=== PATIENT | female | born 1995 | race Hispanic/Latino ===

== ENCOUNTER 2017-09-16 13:38 | Emergency (ER) | payer SELFPAY ==
[~2017-09-16] VITALS: Ht 162.6 cm; Wt 80.4 kg
[~2017-09-16 13:38] MED LIST: NOHOMEMEDS
[2017-09-16 14:28] LABS: HEMATOCRIT 38.1 % (36.0-46.0); MCH 30.4 PG (29.0-34.0); MCHC 34.1 G/DL (30.0-36.0); MCV 89.2 FL (83-99); RBC DIS.WIDTH-CV 12.5 % (11.8-14.6); RBC DIS.WIDTH-SD 40.8 % (39-53); RED BLOOD COUNT 4.27 M/uL (3.80-5.20); WHITE BLOOD COUNT 9.3 K/uL (4.1-10.2)
[2017-09-16 15:28] LABS: HEMATOLOGY COMMENT 1 SN; PLAT.SUFFICIENCY ADEQUATE; PLATELET COUNT 236 K/uL (156-360)
[2017-09-16 15:43] LABS: APPEARANCE CLEAR ((CLEAR)); BILIRUBIN NEGATIVE; BLOOD NEGATIVE; COLOR STRAW ((YELLOW)); GLUCOSE (STRIP) NEGATIVE; KETONES NEGATIVE; LEUKOCYTES NEGATIVE; NITRITE NEGATIVE; PROTEIN (STRIP) NEGATIVE; SPECIFIC GRAVITY 1.005 (1.000-1.030); UCUL ADDED? NO; UROBILINOGEN 0.2 MG/DL (0.2-1.0)
[2017-09-16 17:10] VITALS: BP 120/76
== END 2017-09-16 17:11 | disposition home or self-care (01) ==
LOC: EME 13:38
DX: O20.9 Hemorrhage in early pregnancy, unspecified (principal); O21.9 Vomiting of pregnancy, unspecified; R10.9 Unspecified abdominal pain; Z87.59 Personal history of other complications of pregnancy, childbirth and the puerperium; Z3A.01 Less than 8 weeks gestation of pregnancy; Z87.891 Personal history of nicotine dependence
CPT/HCPCS: 76801; 81003; 84702; 85027; 99281; 99284

== ENCOUNTER 2018-04-28 17:10 | Outpatient (CLI) | payer OTHER ==
[~2018-04-28] VITALS: Ht 160 cm; Wt 102.0 kg
[2018-04-28 17:40] VITALS: BP 141/84
[2018-04-28 18:10] VITALS: BP 123/72
[2018-04-28 18:24] LABS: BASOPHIL (%) 0.3 % (0-1); EOSINOPHIL (%) 0.7 % (0-5); EOSINOPHIL COUNT 0.1 K/uL (0-0.3); HEMATOCRIT 34.2 % (36.0-46.0); HEMOGLOBIN 11.5 G/DL (11.9-15.5); IMMATURE GRANULOCYTE (%) 0.5 % (0.0-0.7); LYMPHOCYTE (%) 19.4 % (15-42); LYMPHOCYTE COUNT 1.8 K/uL (1.0-2.8); MCH 29.5 PG (29.0-34.0); MCHC 33.6 G/DL (30.0-36.0); MCV 87.7 FL (83-99); MONOCYTE (%) 5.7 % (3-12); MONOCYTE COUNT 0.5 K/uL (0-0.8); NEUTROPHIL (%) 73.4 % (45-76); NEUTROPHIL COUNT 6.9 K/uL (1.8-6.4); PLATELET COUNT 138 K/uL (156-360); RBC DIS.WIDTH-CV 13.8 % (11.8-14.6); RBC DIS.WIDTH-SD 43.8 % (39-53); WHITE BLOOD COUNT 9.3 K/uL (4.1-10.2)
[2018-04-28 18:34] LABS: ALBUMIN 3.4 g/dL (3.2-4.8); CHLORIDE 109 mEq/L (99-109); SODIUM 140 mEq/L (136-147)
[2018-04-28 18:36] LABS: GLUCOSE 91 mg/dL (70-99)
[2018-04-28 18:37] LABS: TOTAL PROTEIN 6.1 g/dL (6.4-8.3)
[2018-04-28 18:38] LABS: TOTAL BILIRUBIN 0.2 mg/dL (0.0-1.0)
[2018-04-28 18:40] LABS: ALKALINE PHOSPHATASE 195 IU/L (3-129); CREATININE 0.7 mg/dL (0.6-1.3); GFR ESTIMATE (CALCULATED) > 59 mL/min/
[2018-04-28 18:41] VITALS: BP 128/71
[2018-04-28 18:41] LABS: UREA NITROGEN (BUN) 16 mg/dL (9-23)
[2018-04-28 18:42] LABS: AST (GOT) 13 IU/L (2-34)
[2018-04-28 18:43] LABS: ALT (GPT) 9 IU/L (3-49)
[2018-04-28 19:05] VITALS: BP 119/76
[2018-04-28 19:51] LABS: UR CREATININE CONCENTRATION 181.4 MG/DL
[2018-04-28 20:57] LABS: URIC ACID 2.2 mg/dL (3.1-9.2)
[2018-04-29 11:16] LABS: HEMOGLOBIN A1c (GLYCOHEMOGLOB) 5.5 % (Below 5.7)
[2018-04-29 11:46] LABS: TREPONEMA ANTIBODY NEGATIVE (NEGATIVE)
== END 2018-04-28 22:28 | disposition home or self-care (01) ==
LOC: LDRP-OP → 2WEST 17:11 → LDRP-OP 06-09 08:45
PROVIDERS: Advanced Practice Midwife; Obstetrics & Gynecology
DX: O36.8130 Decreased fetal movements, third trimester, not applicable or unspecified (principal); Z3A.38 38 weeks gestation of pregnancy
CPT/HCPCS: 59025; 80053; 82570; 82948; 83036; 84156; 84550; 85025; 86780; 87086; G0378

== ENCOUNTER 2018-05-07 14:16 | Outpatient (CLI) | payer OTHER ==
[~2018-05-07] VITALS: Ht 162.6 cm; Wt 110.2 kg
[2018-05-07] VITALS (8 sets, daily range): BP systolic 116–130; BP diastolic 63–80
[2018-05-07 15:38] LABS: BASOPHIL (%) 0.3 % (0-1); EOSINOPHIL (%) 0.6 % (0-5); EOSINOPHIL COUNT 0.1 K/uL (0-0.3); HEMATOCRIT 33.2 % (36.0-46.0); HEMOGLOBIN 11.2 G/DL (11.9-15.5); IMMATURE GRANULOCYTE (%) 0.3 % (0.0-0.7); LYMPHOCYTE (%) 21.1 % (15-42); LYMPHOCYTE COUNT 1.8 K/uL (1.0-2.8); MCH 29.6 PG (29.0-34.0); MCHC 33.7 G/DL (30.0-36.0); MCV 87.8 FL (83-99); MONOCYTE (%) 5.3 % (3-12); MONOCYTE COUNT 0.5 K/uL (0-0.8); NEUTROPHIL (%) 72.4 % (45-76); NEUTROPHIL COUNT 6.3 K/uL (1.8-6.4); PLATELET COUNT 138 K/uL (156-360); RBC DIS.WIDTH-CV 14.3 % (11.8-14.6); RBC DIS.WIDTH-SD 45.8 % (39-53); RED BLOOD COUNT 3.78 M/uL (3.80-5.20); WHITE BLOOD COUNT 8.7 K/uL (4.1-10.2)
[2018-05-07 15:51] LABS: APPEARANCE CLOUDY ((CLEAR)); BILIRUBIN NEGATIVE; BLOOD NEGATIVE; COLOR YELLOW ((YELLOW)); GLUCOSE (STRIP) NEGATIVE; KETONES NEGATIVE; LEUKOCYTES NEGATIVE; NITRITE NEGATIVE; PROTEIN (STRIP) 30; SPECIFIC GRAVITY 1.025 (1.000-1.030); UROBILINOGEN 0.2 MG/DL (0.2-1.0)
[2018-05-07 15:54] LABS: ALBUMIN 3.1 g/dL (3.2-4.8); CHLORIDE 110 mEq/L (99-109); POTASSIUM 4.2 mEq/L (3.7-5.4); SODIUM 139 mEq/L (136-147)
[2018-05-07 15:56] LABS: GLUCOSE 95 mg/dL (70-99)
[2018-05-07 15:58] LABS: TOTAL BILIRUBIN 0.3 mg/dL (0.0-1.0)
[2018-05-07 16:00] LABS: ALKALINE PHOSPHATASE 179 IU/L (3-129); CREATININE 0.7 mg/dL (0.6-1.3); GFR ESTIMATE (CALCULATED) > 59 mL/min/
[2018-05-07 16:01] LABS: UREA NITROGEN (BUN) 10 mg/dL (9-23)
[2018-05-07 16:02] LABS: AST (GOT) 12 IU/L (2-34)
[2018-05-07 16:03] LABS: ALT (GPT) 11 IU/L (3-49); URIC ACID 2.6 mg/dL (3.1-9.2)
[2018-05-07 16:10] LABS: UR CREATININE CONCENTRATION 197.5 MG/DL
[2018-05-07 16:17] LABS: AMPHETAMINE NEGATIVE (500 ng/mL); BARBITURATES NEGATIVE (200 ng/mL); BENZODIAZEPINES NEGATIVE (150 ng/mL); BUPRENORPHINE NEGATIVE (10 ng/mL); COCAINE NEGATIVE (150 ng/mL); METHADONE NEGATIVE (200 ng/mL); METHAMPHETAMINE NEGATIVE (500 ng/mL); OPIATES (MORPHINE) NEGATIVE (100 ng/mL); OXYCODONE NEGATIVE (100 ng/mL); PHENCYCLIDINE NEGATIVE (25 ng/mL); PROPOXYPHENE NEGATIVE (300 ng/mL); THC CANNABINOIDS NEGATIVE (50 ng/mL); TRICYCLIC ANTIDEPRESSANTS NEGATIVE (300 ng/mL)
[2018-05-07] MEDS ORDERED: PRENATAL TABLE1 EACH PO (16:25)
[2018-05-07 16:46] LABS: BACTERIA RARE /HPF; EPITHELIAL CELLS 2+ /HPF; MUCUS TRACE /LPF; UCUL ADDED? NO; WHITE BLOOD CELLS 0-5 /HPF (0-5)
[2018-05-07 16:59] LABS: LACTATE DEHYDROGENASE 184 IU/L (20-246)
== END 2018-05-07 18:15 | disposition home or self-care (01) ==
LOC: LDRP-OP 14:16 → 2WEST 14:17 → LDRP-OP 06-09 02:17
PROVIDERS: Advanced Practice Midwife
DX: O47.1 False labor at or after 37 completed weeks of gestation (principal); O36.8130 Decreased fetal movements, third trimester, not applicable or unspecified; Z3A.38 38 weeks gestation of pregnancy
CPT/HCPCS: 59025; 80053; 81003; 82570; 83615; 84156; 84550; 85025; G0378